=== PATIENT | male | born 1965 | race Caucasian/White ===

== ENCOUNTER 2017-11-30 08:57 | Emergency (ER) | payer BC ==
[2017-11-30 09:02] VITALS: BP 197/94; BMI 28.4
--- NOTE | 2017-11-30 09:23 | DR.GENAD ---
HPI - PCP Primary Care Physician: MITUL BROCK - HPI Comment HPI Comment: PATIENT WAS TAKING BACTRIM BUT STOP WHEN RASH STARTED. TOOK BENADYRL. MILD ITCHING. LOW GRADE FEVER PRESENT. - Complaint/Symptoms Chief Complaint Doctors Comments: GENERALIZE RASH TIMES ONE DAY. Chief Complaint:: PATIENT HAS RASH ALL OVER HIS BODY. THE RASH YESTERDAY MORNING AROUND HIS ANKLES AND NOW IT IS ALL OVER HIS BODY. HE HAS BEEN ON SULFA ANTIBOTIC. - Nurses notes reviewed Nurses Notes Review: Yes - Source History Provided: Patient - Mode of Arrival Mode of Arrival: Ambulatory - Timing Onset of Chief Complaint: 11/29/17 Came on: Suddenly - Duration Duration: Constant Duration: Days - Severity Severity: Moderate PMH - PMH Past Medical History: Yes Past Medical History: Hypertension Past Surgical History: No - Family History History of Family Medical Conditions: No - Social History Does patient currently use any type of tobacco product: No Have you used tobacco products in the last 12 months: No Type of Tobacco Use: None Does any household member use tobacco: No Alcohol Use: None Do you use any recreational Drugs:: No Lives With: Family Lives Where: Home - infectious screening In the last 2 months have you had wt loss of >10#?: NO Have you had fever, night sweats or hemotysis?: No Have you traveled outside the country in the last 6 months?: No Isolation: Standard ROS - Review of Systems Constitutional: Fever, Weakness, Fatigue Eyes: No Symptoms Reported. negative: Eye Pain, Discharge ENTM: No Symptoms Reported. negative: Ear Pain, Nose Discharge, Nose Congestion , Throat Pain Respiratoy: No Symptoms Reported. negative: Productive Cough, Non-Productive Cough, Short of Breath, Wheezing, Hemoptysis Cardiovascular: No Symptoms Reported. negative: Chest Pain, Edema Gastrointestinal/Abdominal: No Symptoms Reported. negative: Abdominal Pain, Diarrhea, Nausea, Vomiting Genitourinary: No Symptoms Reported. negative: Dysuria, Frequency, Hematuria Neurological: Weakness. negative: Headache, Dizziness Musculoskeletal: No Symptoms Reported Integumentary: Change in Color, Rash, Itching Hematologic/Lymphatic: No Symptoms Reported Endocrine: No Symptoms Reported All Other Systems: Reviewed and Negative PE - Vital Signs Vitals: Temperature 100.5 F Pulse Rate 130 Respiratory Rate 20 Blood Pressure 197/94 O2 Sat by Pulse Oximetry 98 - General Limitations: No Limitations General Appearance: Alert - Head Head Exam: Normal Inspection - Eyes Eye exam: Normal Appearance - ENT ENT Exam: Normal External Ear Exam External Ear Exam: Normal External Inspection TM/Canal Exam: Bilateral Normal Nose Exam: Normal Nose Exam Mouth Exam: Normal Inspection Throat Exam: Tonsillar Erythema. negative: Tonsillomegaly, Tonsillar Exudate - Neck Neck Exam: Trachea Midline - Chest Chest Inspection: Symmetric Chest Wall Rise - Respiratory Respiratory Exam: Normal Lung Sounds Bilat Respiratory Exam: Bilateral Clear to Auscultation - Cardiovascular Cardiovascular Exam: Regular Rate, Normal Rhythm, Normal Heart Sounds - Abdominal Exam Abdominal Exam: Normal Bowel Sounds, Soft. negative: Tenderness - Extremities Extremities Exam: negative: Tenderness - Back Back Exam: Normal Inspection - Neurologic Neurological Exam: Alert, Oriented X3 - Psychiatric Psychiatric Exam: Normal Affect, Normal Mood - Skin Skin Exam: Erythema, Other (GENERALIZE MACULOPAPULAS RASH.) MDM - Differential Diagnosis Differential Diagnosis: SKIN RASH, ALLERGIC REACTION TO MEDICATION. Course - Treatment Treatment: SEE ORDERS - Education/Counseling Education/Counseling: Patient, Education Educated On: Treatment, Diagnosis, Needs for Follow Up ROR - Labs Reviewed Laboratory Results Reviewed?: Yes Result Diagrams: 11/30/17 09:47 11/30/17 09:47 Laboratory: WBC 10.0 X10^3/uL (3.6-10.0) 11/30/17 09:47 RBC 6.14 X10^6/uL (4.7-6.0) H 11/30/17 09:47 Hgb 18.3 g/dL (13.5-18.0) H 11/30/17 09:47 Hct 52.1 % (42.0-54.0) 11/30/17 09:47 MCV 84.9 fL (80.0-100.0) 11/30/17 09:47 MCH 29.8 pg (27.0-34.0) 11/30/17 09:47 MCHC 35.1 g/dL (33.0-35.0) H 11/30/17 09:47 RDW 13.0 % (11.6-16.5) 11/30/17 09:47 Plt Count 148 X10^3/uL (150.0-450.0) L 11/30/17 09:47 Plt Count Comment Adequate (ADEQUATE) 11/30/17 09:47 MPV 9.9 fL (7.4-11.0) 11/30/17 09:47 Neut % (Auto) 95.2 % (42.0-75.0) H 11/30/17 09:47 Lymph % (Auto) 2.1 % (21.0-51.0) L 11/30/17 09:47 [place] % (Auto) 2.0 % (0.0-13.0) 11/30/17 09:47 Eos % (Auto) 0.6 % (0.9-2.9) L 11/30/17 09:47 Baso % (Auto) 0.1 % (0.2-1.0) L 11/30/17 09:47 Neut # (Auto) 9.5 x10^3/uL (2.2-4.8) H 11/30/17 09:47 Lymph # (Auto) 0.2 X10^3/uL (1.3-2.9) L 11/30/17 09:47 [place] # (Auto) 0.2 x10^3/uL (0.3-0.8) L 11/30/17 09:47 Eos # (Auto) 0.1 x10^3/uL (0.0-0.2) 11/30/17 09:47 Baso # (Auto) 0.0 X10^3/uL (0.0-0.1) 11/30/17 09:47 Absolute Nucleated RBC 0.1 /100WBC 11/30/17 09:47 Total Counted 100 11/30/17 09:47 Neutrophils % (Manual) 90 % (39-76) H 11/30/17 09:47 Band Neutrophils % 4 % (0-10) 11/30/17 09:47 Lymphocytes % (Manual) 2 % (13-43) L 11/30/17 09:47 Monocytes % (Manual) 2 % (4-9) L 11/30/17 09:47 Eosinophils % (Manual) 2 % (0-6) 11/30/17 09:47 Plt Morphology Comment Normal (NORMAL) 11/30/17 09:47 RBC Morphology Normal (NORMAL) 11/30/17 09:47 Sodium 138 mmol/L (136-145) 11/30/17 09:47 Corrected Sodium 139 mmol/L (136-145) 11/30/17 09:47 Potassium 3.9 mmol/L (3.5-5.1) 11/30/17 09:47 Chloride 100 mmol/L (98-107) 11/30/17 09:47 Carbon Dioxide 29.9 mmol/L (21-32) 11/30/17 09:47 BUN 13 mg/dL (7-18) 11/30/17 09:47 Creatinine 1.30 mg/dL (0.70-1.30) 11/30/17 09:47 Est GFR (MDRD) Af Amer > 60 (>60) 11/30/17 09:47 Est GFR (MDRD) Non-Af > 60 (>60) 11/30/17 09:47 Glucose 135 mg/dL (65-99) H 11/30/17 09:47 Calcium 9.3 mg/dL (8.5-10.1) 11/30/17 09:47 Corrected Calcium TNP 11/30/17 09:47 Total Bilirubin 0.50 mg/dL (0.2-1.0) 11/30/17 09:47 AST 24 Units/L (15-37) 11/30/17 09:47 ALT 48 Units/L (12-78) 11/30/17 09:47 Alkaline Phosphatase 91 Units/L (46-116) 11/30/17 09:47 Total Protein 8.3 g/dL (6.4-8.2) H 11/30/17 09:47 Albumin 4.5 g/dL (3.4-5.0) 11/30/17 09:47 Globulin 3.8 g/dL (2.5-4.5) 11/30/17 09:47 Albumin/Globulin Ratio 1.2 Ratio (1.1-2.1) 11/30/17 09:47 Specimen Type Clean catch urine 11/30/17 09:51 Urine Color Yellow (YELLOW) 11/30/17 09:51 Urine Appearance Slightly hazy (CLEAR) 11/30/17 09:51 Urine pH 5.0 (5.0 - 8.0) 11/30/17 09:51 Ur Specific [place] 1.020 (1.000-1.030) 11/30/17 09:51 Urine Protein Negative (NEGATIVE) 11/30/17 09:51 Urine Glucose (UA) Negative (NEGATIVE) 11/30/17 09:51 Urine Ketones Negative (NEGATIVE) 11/30/17 09:51 Urine Occult Blood 2+ (NEGATIVE) 11/30/17 09:51 Urine Nitrite Negative (NEGATIVE) 11/30/17 09:51 Urine Bilirubin Negative (NEGATIVE) 11/30/17 09:51 Urine Urobilinogen Normal (NORMAL) 11/30/17 09:51 Ur Leukocyte Esterase 1+ (NEGATIVE) 11/30/17 09:51 Urine RBC 0-2 /HPF (NONE SEEN) 11/30/17 09:51 Urine WBC 0-2 /HPF (NONE SEEN) 11/30/17 09:51 Ur Squamous Epith Cells Negative /HPF (NEGATIVE) 11/30/17 09:51 Urine Bacteria Trace /HPF (NEGATIVE) 11/30/17 09:51 Urine Mucus Few /HPF (NEGATIVE) 11/30/17 09:51 Ur Culture Indicated? No/not indicated 11/30/17 09:51 S. pyogenes (TEM-PCR) Not detected (NOT DETECT) 11/30/17 09:29 - Diagnosis Discharge Problem: Rash, Allergic drug rash - Discharge Plan Disposition: 01 HOME, SELF-CARE Condition: Stable Prescriptions: Hydroxyzine Pamoate [Vistaril] 25 mg PO TID PRN #20 cap PRN Reason: Methylprednisolone Dosepak 4Mg [MEDROL DOSEPAK (4 mg tab x 21)] 1 valorie PO ONCE # 1 valorie - Follow ups/Referrals Follow ups/Referrals: NIRMALA BROCK [Primary Care Provider] - 12/01/17 - Instructions Instructions: Allergies, Adult, [id number], Drug Allergy, [id number] Additional Instructions: RETURN TO ED IF WORSE.
[2017-11-30 09:58] LABS: BILIRUBIN,URINE NEGATIVE (NEGATIVE); BLOOD/HEMOGLOBIN,URINE 2+ (NEGATIVE); COLOR,URINE YELLOW (YELLOW); GLUCOSE, URINE NEGATIVE (NEGATIVE); KETONES,URINE NEGATIVE (NEGATIVE); LEUKOCYTE ESTERASE ,URINE 1+ (NEGATIVE); NITRITES,URINE NEGATIVE (NEGATIVE); PROTEIN,URINE NEGATIVE (NEGATIVE); UROBILINOGEN,URINE NORMAL (NORMAL)
[2017-11-30 09:59] LABS: APPEARANCE,URINE SLIGHTLY HAZY (CLEAR)
[2017-11-30 10:00] LABS: BASOPHILS % (AUTO) 0.1 % (0.2-1.0); EOSINOPHILS # (AUTO) 0.1 x10^3/uL (0.0-0.2); EOSINOPHILS % (AUTO) 0.6 % (0.9-2.9); HEMATOCRIT 52.1 % (42.0-54.0); HEMOGLOBIN 18.3 g/dL (13.5-18.0); LYMPHOCYTES # (AUTO) 0.2 X10^3/uL (1.3-2.9); LYMPHOCYTES % (AUTO) 2.1 % (21.0-51.0); MEAN CORPUSCULAR HEMOGLOBIN 29.8 pg (27.0-34.0); MEAN CORPUSCULAR HGB CONC 35.1 g/dL (33.0-35.0); MEAN CORPUSCULAR VOLUME 84.9 fL (80.0-100.0); MEAN PLATELET VOLUME 9.9 fL (7.4-11.0); MONOCYTES # (AUTO) 0.2 x10^3/uL (0.3-0.8); NEUTROPHILS # (AUTO) 9.5 x10^3/uL (2.2-4.8); NEUTROPHILS % (AUTO) 95.2 % (42.0-75.0); PLATELET COUNT 148 X10^3/uL (150.0-450.0); RED BLOOD COUNT 6.14 X10^6/uL (4.7-6.0)
[2017-11-30 10:06] LABS: BACTERIA,URINE TRACE /HPF (NEGATIVE); MUCUS,URINE FEW /HPF (NEGATIVE); RBC,URINE 0-2 /HPF (NONE SEEN); SQUAMOUS EPITHELIAL CELL,UR NEGATIVE /HPF (NEGATIVE)
[2017-11-30 10:09] LABS: ALANINE AMINOTRANSFERASE 48 Units/L (12-78); ALBUMIN 4.5 g/dL (3.4-5.0); ALKALINE PHOSPHATASE 91 Units/L (46-116); ASPARTATE AMINO TRANSFERASE 24 Units/L (15-37); BLOOD UREA NITROGEN 13 mg/dL (7-18); CALCIUM 9.3 mg/dL (8.5-10.1); CARBON DIOXIDE 29.9 mmol/L (21-32); CHLORIDE 100 mmol/L (98-107); COR NA(FOR HYPERGLY) 139 mmol/L (136-145); SODIUM 138 mmol/L (136-145); TOTAL PROTEIN 8.3 g/dL (6.4-8.2); eGFR BLACK RACES > 60 (>60); eGFR NON BLACK RACES > 60 (>60)
[2017-11-30 10:13] LABS: BAND NEUTROPHILS % 4 % (0-10); PLATELET MORPHOLOGY COMMENT NORMAL (NORMAL)
== END 2017-11-30 10:52 | disposition home or self-care (01) ==
LOC: ER 09:05
DX: T78.40XA Allergy, unspecified, initial encounter (principal); R21 Rash and other nonspecific skin eruption
CPT/HCPCS: 36415; 80053; 81001; 85025; 87651; 99282